=== PATIENT | female | born 1995 | race Caucasian/White ===

== ENCOUNTER 2016-09-02 05:54 | Emergency (ER) | payer OTHER ==
[~2016-09-02] VITALS: Ht 160 cm; Wt 54.0 kg
[2016-09-02 06:22] VITALS: Ht 160 cm; Wt 54.0 kg
--- NOTE | 2016-09-02 07:22 | RADRPT ---
PROCEDURE: CT Brain without. CLINICAL INDICATION: Dizziness status post fall TECHNIQUE: A CT of the brain was performed utilizing axial sections from the skull base through th e vertex without contrast. The scan was reviewed in soft tissue brain and high frequency resolution bone algorithm windows. Images were reviewed on a high-resolution PACS workstation. The exam CTDI = 45.01 mGy, and the DLP = 720.23 mGy-cm. COMPARISON: None available FINDINGS: There is streak artifact from multiple metallic hair clips. The ventricles are normal in size and m idline in position. There is no intracranial hemorrhage, midline shift, or mass effect. No abnorma l extra-axial fluid collections are identified. The garner-white differentiation is well preserved. The basal cisterns are patent. The posterior fossa is unremarkable. The visualized portions of the orbits are unremarkable. The paranasal sinuses and mastoid air cells are clear. No calvarial fracture or abnormality are identified. The soft tissues are unremarkable . IMPRESSION: Streak artifact from multiple metallic hair clips limits evaluation. No acute intracranial abnormal ity is identified. RPTAT: HH .Tracy Cowan MD, MD Date Time Electronically viewed and signed by .Tracy Cowan MD, on 09/02/2016 07:21 .G/
[2016-09-02] MEDS ORDERED: ACET325T33 PO (07:25)
[2016-09-02 07:33] VITALS: PULSE 98
--- NOTE | 2016-09-02 07:43 | ERD ---
ER Documentation Chief Complaint Date/Time DATE: 09/02/16 TIME: 07:36 Chief Complaint dizziness, bumped head on the bath tub HPI This is a 21-year-old female brought in by ambulance presenting to the emergency room complaining of head injury that occurred an hour and half prior to being seen. Patient states that she was sitting in the toilet and when she got up she slipped and hit her front head on the bathtub. Patient's significant other heard the noise and ran up and patient lost consciousness for about 2 minutes. Patient awakened and she was confused and lost consciousness again for about few seconds. Patient states that she had a frontal headache rating it 2 to 6 out of 10 and intermittent dizziness but it is resolved at this time. She denies any nausea, vomiting, lethargy or abnormal behavior at this time. ROS All systems reviewed and are negative except as per history of present illness. Medications Home Meds Active Scripts Acetaminophen* (Tylenol*) 325 Mg Tablet, 2 TAB PO Q6 Y for PAIN AND OR ELEVATED TEMP, #20 TAB Prov:SHARON WETZEL PA-C 09/02/16 Allergies Allergies: Coded Allergies: No Known Allergy (Unverified , 09/02/16) PMhx/Soc Medical and Surgical Hx: pt denies Medical Hx, pt denies Surgical Hx Hx Psychiatric Problems: Yes (depression) Hx Alcohol Use: Yes (socially) Hx Substance Use: No Hx Tobacco Use: Yes Smoking Status: Current every day smoker Physical Exam Vitals Vital Signs Date Time Temp Pulse Resp B/P Pulse Ox O2 Delivery O2 Flow Rate FiO2 09/02/16 07:33 98 09/02/16 06:22 99.0 114 18 136/96 100 Physical Exam GENERAL: well-developed/well-nourished, in no apparent distress, non-toxic appearing HENT: NC/AT, bilateral tympanic membrane is normal with good cone of light, nares patent, oropharynx clear without exudates EYES: Conjunctiva normal, PERRLA, EOMI, no nystagmus noted NECK: Supple, no lymphadenopathy PULM: CTA bilaterally, no rales, rhonchi, or wheezing heard CV: Normal S1S2, RRR, good capillary refill GI: Soft, non-distended, normal bowel sounds, non-tender BACK: No midline tenderness, no masses, No CVAT EXT: No clubbing, cyanosis, or edema NEURO: Alert and orientated to person, place, and time. CN II-IIX intact. Gait and coordination were normal. Hand physician in private practice strength were equal and within normal limits SKIN: Intact, normal turgor PSYCH: Normal mood and mentation, patient denied SI Procedures/MDM This is a 21-year-old female presenting to the emergency room that was brought in by ambulance for a head injury that occurred an hour and a half prior to being seen. Patient describes that she tripped and hit the front of her head on the bathtub with loss of consciousness for about 2 minutes. Patient was complaining of intermittent headache and dizziness without any nausea, vomiting or lethargy. Patient likely had a concussion. Differentials include intracranial bleeding, skull fracture, concussion, postconcussion headache however it is unlikely due to physical examination. Patient had a normal neuro exam and was acting normal in the examination room. CT of the head without contrast was done and was unremarkable for any mass shift , intracranial pathology. However I have discussed with patient the precautions of head injury and concussion. I discussed that she will need to follow-up with a primary care physician for possible neurology appointment. I have reassessed patient towards the end of the encounter and she appears to be doing well. She is stable and neurovascularly intact. Strict precautions were given to return to the ER for any worsening condition or not improving as expected. Prescription for Tylenol was given to patient. Patient understood and agreed with this plan. Departure Diagnosis: Primary Impression: Head injury Additional Impression: Concussion Condition: Stable Patient Instructions: After a Concussion, Concussion, HEAD INJURY, No Wake-Up ( Adult) Referrals: Your Doctor Additional Instructions: FOLLOW UP WITH YOUR PRIMARY CARE PHYSICIAN TOMORROW.Return to this facility if you are not improving as expected. Take all medicines as directed. Return to this facility if you are not improving as expected. SHARON WETZEL PA-C Sep 02, 2016 07:43
== END 2016-09-02 07:34 | disposition home or self-care (01) ==
LOC: FTE 05:54
DX: S06.0X1A Concussion with loss of consciousness of 30 minutes or less, initial encounter (principal); F17.210 Nicotine dependence, cigarettes, uncomplicated; W18.49XA Other slipping, tripping and stumbling without falling, initial encounter; Y92.9 Unspecified place or not applicable
CPT/HCPCS: 70450